=== PATIENT | female | born 1990 | race Caucasian/White ===

== ENCOUNTER 2020-11-02 11:20 | Emergency (ER) | payer OTHER ==
[~2020-11-02] VITALS: Ht 177.8 cm; Wt 117.9 kg
[2020-11-02 12:38] VITALS: BP 102/67
== END 2020-11-02 12:39 | disposition home or self-care (01) ==
LOC: ER 11:20
DX: S06.0X0A Concussion without loss of consciousness, initial encounter (principal); S13.4XXA Sprain of ligaments of cervical spine, initial encounter; Z88.1 Allergy status to other antibiotic agents; Y04.2XXA Assault by strike against or bumped into by another person, initial encounter; Y93.89 Activity, other specified; Y92.89 Other specified places as the place of occurrence of the external cause; Y99.8 Other external cause status